=== PATIENT | male | born 1975 | race Caucasian/White ===

== ENCOUNTER 2018-07-28 05:44 | Emergency (ER) | payer BC, OTHER ==
[2018-07-28 06:00] VITALS: BMI 54.5
--- NOTE | 2018-07-28 06:00 | PDOC ---
History of Present Illness - General Chief Complaint: Cold Symptoms Stated Complaint: DIFFICULTY BREATHING Time Seen by Provider: 07/28/18 06:00 History Source: Patient Exam Limitations: No Limitations - History of Present Illness Initial Comments: 43 y.o. morbidly obese male with a h/o bridged heart (s/p cardiac catheterization by Dr. Flores at [facility]) and asthma presents to the ER via private auto to the ER because of a productive cough over the past 2 days and shortness of breath and difficulty breathing. Patient states the cough didn't bother him but the difficulty breathing prompted him to come to the ED to be evaluated. Has not had an asthma exacerbation in a long time, he cant remember the date of his last exacerbation. Patient has never been intubated or to the ICU for his asthma. Patient Denies recent fevers, chills, headache, neck pain, nausea, vomiting, abdominal pain, diarrhea, constipation, dysuria, frequency, back pain, blurry vision, vertigo, chest pain, numbness, weakness, or tingling. PCP: None PSH: Cardiac Cath Social Hx: Drinks recreationally. Denies smoking or other substance usage Allergies: Seasonal Past History - Past Medical History Allergies/Adverse Reactions: Allergies Allergy/AdvReac Type Severity Reaction Status Date / Time No Known Allergies Allergy Verified 07/28/18 05:57 Home Medications: Ambulatory Orders Ondansetron [Zofran Odt -] 4 mg SL TID #21 od.tablet 09/04/14 - Suicide/Smoking/Psychosocial Hx Smoking History: Never smoked Have you smoked in the past 12 months: No Information on smoking cessation initiated: No Hx Alcohol Use: No Drug/Substance Use Hx: No Review of Systems - Review of Systems Able to Perform ROS?: Yes Comments:: CONSTITUTIONAL: Absent: fever, no chills, no fatigue EYES: Absent: visual changes ENT: Absent: ear pain, no sore throat CARDIOVASCULAR: Absent: chest pain, no palpitations RESPIRATORY: Present: Cough, SOB GI: Absent: abdominal pain, no nausea, no vomiting, no constipation, no diarrhea GENITOURINARY: Absent: dysuria, no frequency, no hematuria MUSKULOSKELETAL: Absent: back pain, no arthralgia, no myalgia SKIN: Absent: rash NEURO: Absent: headache *Physical Exam - Vital Signs Last Vital Signs Temp Pulse Resp BP Pulse Ox 97.9 F 79 18 133/67 96 07/28/18 05:57 07/28/18 05:57 07/28/18 05:57 07/28/18 05:57 07/28/18 05:57 - Physical Exam Comments: GENERAL: Well-appearing, well-nourished. No apparent distress. HEENT: Normocephalic, atraumatic. PERRL, EOM intact. CARDIOVASCULAR: Normal S1, S2. Regular rate and rhythm. PULMONARY: No evidence of respiratory distress. Lungs clear to auscultation bilaterally. No wheezing, rales or rhonchi. ABDOMEN: Soft, non-distended, non-tender. EXTREMITIES: Normal ROM in all four extremities. No gross deformities. SKIN: Warm, dry. No rash NEUROLOGICAL: No focal neurological deficits. Moderate Sedation - Procedure Monitoring Vital Signs: Procedure Monitoring Vital Signs Temperature 97.9 F 07/28/18 05:57 Pulse Rate 79 07/28/18 05:57 Respiratory Rate 18 07/28/18 05:57 Blood Pressure 133/67 07/28/18 05:57 O2 Sat by Pulse Oximetry (%) 96 07/28/18 05:57 ED Treatment Course - LABORATORY CBC & Chemistry Diagram: 07/28/18 06:25 07/28/18 06:25 Medical Decision Making - Medical Decision Making 43 y.o. morbidly obese male with a h/o bridged heart (s/p cardiac catheterization by Dr. Flores at [facility]) and asthma presents to the ER via private auto to the ER because of a productive cough over the past 2 days and shortness of breath and difficulty breathing. Patient states the cough didn't bother him but the difficulty breathing prompted him to come to the ED to be evaluated. Has not had an asthma exacerbation in a long time, he cant remember the date of his last exacerbation. VS: WNL DDx IBNLT: Asthma exacerbation, Influenza, PNA, Other URI, ACS/CA, Heart failure , JOHN/OHVS Plan: Labs, EKG, Flu swab, IV hydration, Duonebs, re-assess. EKG normal sinus. Patient Signed out to Dr. Norman for further management and dispo *DC/Admit/Observation/Transfer Diagnosis at time of Disposition: Asthma attack - Discharge Dispostion Disposition: HOME Condition at time of disposition: Improved Decision to Admit order: No - Referrals Referrals: [facility] Internal Med at [place] [Provider Group] - Patient Instructions Printed Discharge Instructions: How to Avoid a Cold or Flu, Asthma -- Adult, DI for Acute Bronchitis Additional Instructions: You came into the ER with shortness of breath and difficulty breathing. We gave you some breathing treatments and you felt better. Please make sure to schedule a follow up appointment with a doctor in the next 3 to 5 days to make sure you are getting better and being taken care of. We are giving you the number of a primary care doctor to call and establish care with. Come back to the ER if your symptoms worsen, you experience further shortness of breath, have chest pain or any other new or worsening concerns. Thank you for coming to the [facility] ER. We hope you feel better soon! Print Language: GEORGIAN - Post Discharge Activity
[2018-07-28] MEDS ORDERED: SODIUM CHLORIDE 1,000 ML IV STA (06:05)
[2018-07-28] MEDS ORDERED: ALBUTEROL SO4 2.5/IPRATROPIUM 0.5 INH SOL 3 ML VIAL.NEB. NEB ONE ×2 (06:05→06:13)
--- NOTE | 2018-07-28 06:10 | PDOC ---
Attending Attestation - Resident Resident Name: Jama López - ED Attending Attestation I have performed the following: I have examined & evaluated the patient, The case was reviewed & discussed with the resident, I agree w/resident's findings & plan - HPI HPI: 07/28/18 06:26 43-year-old male with a history of asthma and morbid obesity complaining of increasing shortness of breath and cough. Patient denies chest pain back pain nausea vomiting or fever. - Physicial Exam PE: 07/28/18 06:27 Agree with resident's exam - Medical Decision Making 07/28/18 06:27 43-year-old morbidly obese male with a history of asthma complaining of increasing shortness of breath Plan for chest x-ray and labs including a BNP and troponin EKG is a normal sinus rhythm with no acute ST elevations DuoNeb given 1 with plans for likely discharge home pending results
[2018-07-28 06:39] LABS: EOS % 2.3 % (0-4.5); HEMATOCRIT 43.1 % (35.4-49); LYMPH % 22.6 % (8-40); MCH 31.7 pg (25.7-33.7); MCHC 34.9 g/dl (32.0-35.9); MEAN PLT VOLUME 9.1 fl (7.5-11.1); MONO % 5.9 % (3.8-10.2); NEUT % 68.2 % (42.8-82.8); PLATELET COUNT 242 K/MM3 (134-434); RBC 4.74 M/mm3 (4.00-5.60); RDW 14.1 % (11.9-15.9); WHITE BLOOD COUNT 10.6 K/mm3 (4.0-10.0)
[2018-07-28 07:01] LABS: ALBUMIN 3.6 g/dl (3.4-5.0); ALK PHOS 107 U/L (45-117); ANION GAP 6 MMOL/L (8-16); BILIRUBIN,TOTAL 0.4 mg/dL (0.2-1); BLOOD UREA NITROGEN 11 mg/dL (7-18); CALCIUM 8.2 mg/dL (8.5-10.1); CHLORIDE 104 mmol/L (98-107); CO2 30 mmol/L (21-32); GLUCOSE,RANDOM 92 mg/dL (74-106); POTASSIUM 4.3 mmol/L (3.5-5.1); SGOT/AST 24 U/L (15-37); SGPT/ALT 45 U/L (13-61); SODIUM 139 mmol/L (136-145); TOT PROT 7.3 g/dl (6.4-8.2)
--- NOTE | 2018-07-28 07:04 | PDOC ---
*Physical Exam - Vital Signs Last Vital Signs Temp Pulse Resp BP Pulse Ox 97.9 F 79 18 133/67 96 07/28/18 05:57 07/28/18 05:57 07/28/18 05:57 07/28/18 05:57 07/28/18 05:57 ED Treatment Course - LABORATORY CBC & Chemistry Diagram: 07/28/18 06:25 07/28/18 06:25 - ADDITIONAL ORDERS Additional order review: Laboratory Results 07/28/18 06:25 Sodium 139 Potassium 4.3 Chloride 104 Carbon Dioxide 30 Anion Gap 6 L BUN 11 Creatinine 1.0 Creat Clearance w eGFR > 60 Random Glucose 92 Calcium 8.2 L Total Bilirubin 0.4 AST 24 ALT 45 Alkaline Phosphatase 107 Total Protein 7.3 Albumin 3.6 07/28/18 06:25 RBC 4.74 MCV 91.0 MCHC 34.9 RDW 14.1 MPV 9.1 Neutrophils % 68.2 D Lymphocytes % 22.6 D Monocytes % 5.9 Eosinophils % 2.3 D Basophils % 1.0 - Medications Given in the ED: ED Medications Discontinued Medications Generic Name Dose Route Start Last Admin Trade Name Freq PRN Reason Stop Dose Admin Albuterol/Ipratropium 1 amp 07/28/18 06:05 07/28/18 06:29 Duoneb - NEB 07/28/18 06:06 1 amp ONCE ONE Administration Medical Decision Making - Medical Decision Making 07/28/18 07:01 43 year old male with PMH h/o bridged heart (s/p cardiac catheterization by Dr. Flores at [facility]) and asthma presents to the ER via private auto to the ER because of a productive cough over the past 2 days and shortness of breath and difficulty breathing. Audible wheezing upon presentation. Pt given duonebs with improvement of symptoms. Initial Vital Signs Temp Pulse Resp BP Pulse Ox 97.9 F 79 18 133/67 96 07/28/18 05:57 07/28/18 05:57 07/28/18 05:57 07/28/18 05:57 07/28/18 05:57 Afebrile. No tachycardia. No tachypnea. Mild hypertension. No hypoxia on room air. CBC WBC 10.6 K/mm3 (4.0-10.0) H 07/28/18 06:25 RBC 4.74 M/mm3 (4.00-5.60) 07/28/18 06:25 Hgb 15.0 GM/dL (11.7-16.9) 07/28/18 06:25 Hct 43.1 % (35.4-49) 07/28/18 06:25 MCV 91.0 fl (80-96) 07/28/18 06:25 MCH 31.7 pg (25.7-33.7) 07/28/18 06:25 MCHC 34.9 g/dl (32.0-35.9) 07/28/18 06:25 RDW 14.1 % (11.9-15.9) 07/28/18 06:25 Plt Count 242 K/MM3 (134-434) 07/28/18 06:25 MPV 9.1 fl (7.5-11.1) 07/28/18 06:25 Absolute Neuts (auto) 7.2 K/mm3 (1.5-8.0) 07/28/18 06:25 Neutrophils % 68.2 % (42.8-82.8) D 07/28/18 06:25 Lymphocytes % 22.6 % (8-40) D 07/28/18 06:25 Monocytes % 5.9 % (3.8-10.2) 07/28/18 06:25 Eosinophils % 2.3 % (0-4.5) D 07/28/18 06:25 Basophils % 1.0 % (0-2.0) 07/28/18 06:25 Nucleated RBC % 0 % (0-0) 07/28/18 06:25 Mild leukocytosis with no left shift. Influenza A/B negative. 07/28/18 07:10 CMP Sodium 139 mmol/L (136-145) 07/28/18 06:25 Potassium 4.3 mmol/L (3.5-5.1) 07/28/18 06:25 Chloride 104 mmol/L (98-107) 07/28/18 06:25 Carbon Dioxide 30 mmol/L (21-32) 07/28/18 06:25 Anion Gap 6 MMOL/L (8-16) L 07/28/18 06:25 BUN 11 mg/dL (7-18) 07/28/18 06:25 Creatinine 1.0 mg/dL (0.55-1.3) 07/28/18 06:25 Creat Clearance w eGFR > 60 (>60) 07/28/18 06:25 Random Glucose 92 mg/dL (74-106) 07/28/18 06:25 Calcium 8.2 mg/dL (8.5-10.1) L 07/28/18 06:25 Total Bilirubin 0.4 mg/dL (0.2-1) 07/28/18 06:25 AST 24 U/L (15-37) 07/28/18 06:25 ALT 45 U/L (13-61) 07/28/18 06:25 Alkaline Phosphatase 107 U/L (45-117) 07/28/18 06:25 Creatine Kinase 125 U/L (26-308) 07/28/18 06:25 Troponin I < 0.02 ng/ml (0.00-0.05) 07/28/18 06:25 B-Natriuretic Peptide 99.2 pg/ml (5-125) 07/28/18 06:25 Total Protein 7.3 g/dl (6.4-8.2) 07/28/18 06:25 Albumin 3.6 g/dl (3.4-5.0) 07/28/18 06:25 No electrolyte abnormalities. No TERESA. No transaminitis. Normal troponin. Normal BNP. c CXR negative for acute thoracic pathology. g Pt reported he does not have an inhaler or nebulizer solution. Both sent to pts pharmacy. Pt stated he had the physical nebulizer machine at home. Pt reported his SOB improved with duonebs. Pt stated he does not feel he needs more duoneb treatments. Pt discharged. *DC/Admit/Observation/Transfer Diagnosis at time of Disposition: Asthma attack - Discharge Dispostion Disposition: HOME Condition at time of disposition: Improved - Prescriptions Prescriptions: Albuterol 0.083% Nebulizer Digna [Ventolin 0.083% Nebulizer Soln -] 1 neb NEB Q4H PRN #30 vial PRN Reason: Asthma Albuterol Sulfate Inhaler - [Ventolin HFA Inhaler -] 1 - 2 inh PO Q4H PRN #1 inhaler PRN Reason: Asthma - Referrals Referrals: [facility] [facility] [place] [Provider Group] - Patient Instructions Printed Discharge Instructions: How to Avoid a Cold or Flu, Asthma -- Adult, DI for Acute Bronchitis Additional Instructions: You came into the ER with shortness of breath and difficulty breathing. We gave you some breathing treatments and you felt better. Please make sure to schedule a follow up appointment with a doctor in the next 3 to 5 days to make sure you are getting better and being taken care of. We are giving you the number of a primary care doctor to call and establish care with. Come back to the ER if your symptoms worsen, you experience further shortness of breath, have chest pain or any other new or worsening concerns. Take Tylenol over the counter for pain/fever, take as advised on label. I have sent a prescription for albuterol inhaler and albuterol solution for your nebulizer to your pharmacy. Use as advised on labels. Thank you for coming to the [facility] ER. We hope you feel better soon! Print Language: MALDIVIAN - Post Discharge Activity Forms/Work/School Notes: Back to Work, Parent(s) Back to Work Note
[2018-07-28 07:10] LABS: N-TERMINAL BNP 99.2 pg/ml (5-125)
[2018-07-28 07:43] VITALS: BP 123/52; PULSE 73; TEMP 98.5
--- NOTE | 2018-07-28 11:53 | EKG ---
Test Reason : Blood Pressure : / mmHG Vent. Rate : 081 BPM Atrial Rate : 081 BPM P-R Int : 162 ms QRS Dur : 082 ms QT Int : 368 ms P-R-T Axes : 057 058 013 degrees QTc Int : 427 ms NORMAL SINUS RHYTHM NORMAL ECG NO PREVIOUS ECGS AVAILABLE Confirmed by EUGENIA CABEZAS MD ([id number]) on 07/28/2018 11:53:01 AM Referred By: Confirmed By:EUGENIA CABEZAS MD
== END 2018-07-28 07:43 | disposition home or self-care (01) ==
LOC: JER 05:44
PROC: 3E0337Z Introduction of Electrolytic and Water Balance Substance into Peripheral Vein, Percutaneous Approach (ICD-10-PCS; principal; 2018-07-28)
PROC: 3E0F7GC Introduction of Other Therapeutic Substance into Respiratory Tract, Via Natural or Artificial Opening (ICD-10-PCS; 2018-07-28)
DX: J45.901 Unspecified asthma with (acute) exacerbation (principal); E66.01 Morbid (severe) obesity due to excess calories; Z68.43 Body mass index [BMI] 50.0-59.9, adult; Z98.61 Coronary angioplasty status
CPT/HCPCS: 36415; 71046-TC-FY; 80053; 82550; 83880; 84484; 85025; 87804; 93005; 93010; 99282-25; J7030